=== PATIENT | male | born 1945 | race African-American/Black ===

== ENCOUNTER 2021-09-18 23:18 | Emergency (ER) | payer OTHER ==
[~2021-09-18] VITALS: Ht 182.9 cm; Wt 124.7 kg
--- NOTE | ~2021-09-18 | EMS ---
[facility] [address] [place] [address] EMS Patient Care Report Name: AHSAN ALATORRE Room #: REG JEAN-PIERRE Caceres#: [id number] Admission: 09/18/21 Attend Phys: Discharge: Date of : 45 Report #: [id number] THIS REPORT FOR: //name// Report Transmitted: 09/18/2021 23:19 EMS Care Summary [place], [place]/[facility] Incident [id number] @ 09/18/2021 22:51 Incident Location [address] Patient AHSAN ALATORRE Male, 76 Years 1945 Patient Address [address] [place] [address] Patient History Congestive Heart Failure (CHF),Chronic Obstructive Pulmonary Disease (COPD),Hypertension (HTN),Kidney/Renal Failure,Schizophrenia,Depression,Anemia,Hypothyroidism,Dialysis, Patient Allergies No known allergies, Patient Medications Lasix, Plavix, Chief Complaint hypertension Disposition Transported No Lights/[place] Dispatch Reason Stroke/CVA Transported To [facility] Narrative pt found seated in twyla chair. pt is alert and able to answer name and BD. [facility] [address] [place] [address] EMS Patient Care Report Name: AHSAN ALATORRE Room #: REG MGladis.#: [id number] Admission: 09/18/21 Attend Phys: Discharge: Date of : 45 Report #: [id number] staff states they called b/c the Dr wants pt eval at ER. staff member reports that when she came on at 2100 the report she rec was that pt "was not doing very good" and was having high BP and had been given an extra Clonidine. he was also reported to be "leaning to the R". Unk when pt actually last known normal was . pt states he "just don't feel good" when asked specifically what is wrong w/ him. he states he was last dialysed on Sat 09/14- unk accuracy of that info. pt to be eval at [facility]. pt to cot, VS, transport w/o incident. report to staff rm 12 Initial Vitals @23:06P: 81,R: 18,BP: 205/77,GCS: 14,Glucose: 131,SpO2: 97,Revised Trauma: 12, Assessments @23:00MENTAL:Person Oriented,Place Oriented,Event Oriented,SKIN:No Abnormalities,HEENT:Head/Face: No Abnormalities,LUNG SOUNDS:ABDOMEN:PELVIS//GI:EXTREMITIES:Left Arm: Other,PULSE:NEURO:Other, Impression Hypertension Procedures @23:00 ALS Assessment Response: Unchanged @23:03 Stretcher Response: Unchanged @23:06 3-Lead ECG Response: Unchanged Timeline 22:48,Call Received 22:48,Dispatch Notified 22:51,Dispatched 22:51,En Route 22:57,On Scene 22:59,At Patient 23:00,ALS Assessment,Response: Unchanged 23:03,Stretcher,Response: Unchanged 23:06,BP: 205/77 M,PULSE: 81,RR: 18 R,SPO2: 97 Ox,ETCO2: ,B,PAIN: ,GCS: 14, 23:06,3-Lead ECG,Response: Unchanged 23:07,Depart Scene 23:12,At Destination 23:33,Call Closed Disclaimer v1.1 Copyright 2020 [employer] This EMS Care Summary contains data elements from the applicable legal record (which may be displayed differently). It is designed to provide pertinent [address] [address] EMS Patient Care Report Name: CELIAHSAN Room #: REG JEAN-PIERRE Caceres#: [id number] Admission: 09/18/21 Attend Phys: Discharge: Date of : 45 Report #: [id number] information for the following purposes: continuity of care, clinical quality, and state data reporting. The complete legal record is available to ED staff and administrators of the receiving hospital in [employer]'s Patient Tracker. All data is provided "as is."
[2021-09-19 00:26] LABS: BASOPHILS 0.3 % (0.0-2.0); EOSINOPHILS 0.2 % (0.0-3.0); HEMATOCRIT 33.6 % (42.0-52.0); HEMOGLOBIN 10.9 gm/dL (14.0-18.0); MCH 30.5 pg (26.0-34.0); MCHC 32.3 g/dL (28.0-37.0); MCV 94.3 fL (80.0-100.0); MONOCYTES 5.2 % (1.0-8.0); PLATELET COUNT 211 thou/uL (150-400); POLYS 92.3 % (36.0-66.0); RBC 3.56 mil/uL (4.50-6.00); RDW 14.9 % (10.5-14.5); WBC 11.9 thou/uL (4.0-11.0)
[2021-09-19 00:29] LABS: CALCIUM 8.6 mg/dL (8.5-10.1); CREATININE 5.7 mg/dL (0.7-1.3)
[2021-09-19 03:44] VITALS: BP 160/63
--- NOTE | 2021-09-19 07:07 | EKG ---
[address] [place] [address] ELECTROCARDIOGRAM REPORT Name: AHSAN ALATORRE Room #: DEP JEAN-PIERRE Caceres#: [id number] Admission: 09/18/21 Attend Phys: Discharge: 09/19/21 Date of : 45 Report #: [id number] [facility] ED Test Date: 2021-09-19 Test Time: 00:17:48 Pat Name: AHSAN ALATORRE Department: Room: Gender: M [employer] Installer: linda small : 1945 Requested By: Jayson Germain Order Number: [id number] MD: Jose M Frausto Measurements Intervals Shannon Rate: 82 P: 75 FL: 211 QRS: 37 QRSD: 94 T: 62 QT: 425 QTc: 497 Interpretive Statements Sinus rhythm Borderline prolonged QT interval No previous ECG available for comparison Electronically Signed On 09-19-2021 7:07:39 [employer]AT [employer] by Jose M Frausto [email or web address] <ELECTRONICALLY SIGNED> By: Jose M Frausto MD, [facility] 09/19/21 0707 0017 0017 Jose M Frausto MD, FACC /EPI
== END 2021-09-19 05:30 | disposition home or self-care (01) ==
LOC: ER 23:18
PROVIDERS: Emergency Medicine
DX: I12.0 Hypertensive chronic kidney disease with stage 5 chronic kidney disease or end stage renal disease (principal); N18.6 End stage renal disease; E78.5 Hyperlipidemia, unspecified; K21.9 Gastro-esophageal reflux disease without esophagitis; E11.9 Type 2 diabetes mellitus without complications; I70.90 Unspecified atherosclerosis